=== PATIENT | male | born 1955 | race Caucasian/White ===

== ENCOUNTER 2018-03-26 03:56 | Emergency (ER) | payer OTHER ==
[~2018-03-26] VITALS: Ht 185.4 cm; Wt 104.3 kg
[2018-03-26 03:56] VITALS: BP_SYST 141
[2018-03-26 04:30] VITALS: BP_SYST 138
== END 2018-03-26 04:30 ==
LOC: SED 03:56
DX: S50.812A Abrasion of left forearm, initial encounter (principal); S00.211A Abrasion of right eyelid and periocular area, initial encounter; V89.2XXA Person injured in unspecified motor-vehicle accident, traffic, initial encounter; Y93.89 Activity, other specified; Y92.410 Unspecified street and highway as the place of occurrence of the external cause; Y99.8 Other external cause status
CPT/HCPCS: 99283